=== PATIENT | male | born 1970 | race Caucasian/White ===

== ENCOUNTER 2022-08-10 09:25 | Outpatient (CLI) | payer OTHER, SELFPAY | END 2022-08-10 09:26 | disposition home or self-care (01) | PROVIDERS: PCP Family Medicine; Visit Provider Family Medicine | DX: I10 Essential (primary) hypertension (principal); E78.2 Mixed hyperlipidemia; E03.9 Hypothyroidism, unspecified; Z12.5 Encounter for screening for malignant neoplasm of prostate | CPT/HCPCS: 80048; 80061; 84153; 84443 ==

== ENCOUNTER 2022-10-21 15:15 | Outpatient (RCR) | payer OTHER, SELFPAY | END 2023-02-18 23:59 | disposition home or self-care (01) | PROVIDERS: PCP Family Medicine; Visit Provider Family Medicine | DX: M54.2 Cervicalgia (principal); G89.29 Other chronic pain; M54.12 Radiculopathy, cervical region; Z51.89 Encounter for other specified aftercare | CPT/HCPCS: 97110; 97140; 97162 ==

== ENCOUNTER 2023-11-21 11:39 | Outpatient (CLI) | payer BC, SELFPAY | END 2023-11-21 11:40 | disposition home or self-care (01) | PROVIDERS: PCP Family Medicine; Visit Provider Family Medicine | DX: I10 Essential (primary) hypertension (principal); E78.2 Mixed hyperlipidemia; E03.9 Hypothyroidism, unspecified; Z12.5 Encounter for screening for malignant neoplasm of prostate; R53.83 Other fatigue | CPT/HCPCS: 80048; 80061; 84439; 84443; G0103 ==

== ENCOUNTER 2024-06-10 09:56 | Outpatient (CLI) | payer BC, SELFPAY | END 2024-06-10 09:57 | disposition home or self-care (01) | LOC: NFLDREF 09:57 | PROVIDERS: PCP Family Medicine; Visit Provider Family Medicine | DX: E03.9 Hypothyroidism, unspecified (principal) | CPT/HCPCS: 84443 ==

== ENCOUNTER 2024-12-03 10:34 | Outpatient (CLI) | payer BC, SELFPAY | END 2024-12-03 10:35 | disposition home or self-care (01) | PROVIDERS: PCP Family Medicine; Visit Provider Family Medicine | DX: Z12.5 Encounter for screening for malignant neoplasm of prostate (principal); I10 Essential (primary) hypertension; E78.2 Mixed hyperlipidemia | CPT/HCPCS: 80048; 80061; G0103 ==

== ENCOUNTER 2024-12-20 07:56 | Outpatient (CLI) | payer BC, SELFPAY ==
--- NOTE | 2024-12-20 | CRLHL7_ITS ---
For Patients: As a result of the Cures Act, medical imaging exams and procedure reports are released immediately into your electronic medical record. You may view this report before your referring provider. If you have questions, please contact your health care provider. INDICATION: Pre MRI screen for metallic foreign body. COMPARISON: none TECHNIQUE: AP guo view of the orbits FINDINGS: There is no evidence of a metallic foreign body over either orbit. The paranasal sinuses are clear IMPRESSION: No evidence of metallic foreign body. Dictated by Galen Pablo MD @ 12/20/2024 8:35:44 AM (Electronically Signed)
--- NOTE | 2024-12-20 08:15 | CRLHL7_ITS ---
For Patients: As a result of the 21st Century Cures Act, medical imaging exams and procedure reports are released immediately into your electronic medical record. You may view this report before your referring provider. If you have questions, please contact your health care provider. CLINICAL INDICATION: Left shoulder pain. COMPARISON IMAGING STUDIES: Radiographs from 12/03/2024. TECHNICAL: Non-contrast MRI of the left shoulder. Axial, sagittal oblique and coronal oblique T1, PD, PD FS, T2 and T2 FS images. 1.5 [employer] MR scanner. FINDINGS: GLENOHUMERAL JOINT: Effusion/Joint Space: Small amount of glenohumeral joint fluid. Humeral Head Articular Cartilage: Mild thinning of the humeral head articular cartilage (grade 2). Glenoid Articular Cartilage: Mild glenoid cartilage wear posteriorly (grade 2). Alignment: There is posterior subluxation of the humeral head. Capsule: No capsular edema or abnormal capsular thickening. OSSEOUS STRUCTURES: No acute fracture or avascular necrosis. There is bone marrow edema within the lateral clavicle. CORACOACROMIAL ARCH: Acromial Morphology: Type 2 acromial morphology. Mild lateral downward sloping of the acromion. No os acromiale. No significant subacromial spur. Lateral acromial thickness is 7 mm. Acromiohumeral Interval: At its narrowest, the interval measures 7 mm. Coracohumeral Interval: At its narrowest, the coracohumeral interval measures 17 mm. Coracoid index is 17 mm. ACROMIOCLAVICULAR JOINT REGION: Advanced AC joint degenerative arthrosis. Coracoclavicular ligament intact. BURSAE: No bursal fluid collection. ROTATOR CUFF TENDONS AND MUSCLES AND DELTOID: Supraspinatus and Infraspinatus: There is distal supraspinatus tendinosis with moderate grade partial-thickness undersurface tendon tearing over an approximately 13 millimeter anterior/posterior by 11 millimeter medial/lateral extent. No full-thickness supraspinatus tendon tear or muscle atrophy. Mild infraspinatus tendinosis. No infraspinatus tendon tear or muscle atrophy. Teres Minor: Distal tendon intact. No muscle atrophy. Subscapularis: Distal subscapularis tendinosis with high-grade tearing of the superior 12 millimeters of the distal tendon. Focally, there may be full-thickness tearing from the lesser tuberosity superiorly. No subscapularis muscle atrophy. Deltoid: No muscle atrophy or edema. BICEPS TENDON, LONG HEAD: High-grade partial tearing of the long head of the biceps tendon. Tendon is medially displaced from the bicipital groove, partially onto the lesser tuberosity. Degenerative labral tearing extends to involve its anchor. GLENOID LABRUM: Multifocal degenerative glenoid labral tearing. OTHER FINDINGS: There is no abnormality within the suprascapular or spinoglenoid notches nor within the quadrilateral space. No axillary adenopathy or mass. IMPRESSION: 1. High-grade tearing of the distal subscapularis tendon superiorly with suspected full-thickness tearing from the lesser tuberosity along the superior margin of the distal tendon. 2. High-grade partial tearing of the long head of the biceps tendon. Disrupted biceps silvestre mechanism with medial displacement of the tendon. 3. Moderate grade partial-thickness undersurface supraspinatus tendon tearing. 4. Mild glenohumeral joint articular cartilage wear. Multifocal degenerative labral tearing. 5. Advanced AC joint degenerative arthrosis. Dictated by Enrique Vazquez MD @ 12/20/2024 1:37:23 PM (Electronically Signed)
== END 2024-12-20 07:57 | disposition home or self-care (01) ==
PROVIDERS: PCP Family Medicine; Visit Provider Family Medicine
DX: M25.512 Pain in left shoulder (principal); M75.102 Unspecified rotator cuff tear or rupture of left shoulder, not specified as traumatic; S46.212A Strain of muscle, fascia and tendon of other parts of biceps, left arm, initial encounter; M19.012 Primary osteoarthritis, left shoulder; G89.29 Other chronic pain
CPT/HCPCS: 70030; 73221